=== PATIENT | female | born 1940 | race Caucasian/White ===

== ENCOUNTER 2021-04-20 06:16 | Observation (INO) ==
--- NOTE | 2021-03-22 13:29 | PAT Medication Instructions ---
Medication Instructions Date of Service March 22, 2021 Home Medications Biotin Otc 1 tab PO DAILY albuterol sulfate [Ventolin HFA] 1 puff INHALATION QID PRN aspirin [Aspir-81] 81 mg PO QPM docusate sodium [Stool Softener] 100 mg PO DAILY PRN famotidine 20 mg PO BID losartan 50 mg PO QAM pravastatin 10 mg PO QPM vitamin B complex 1 tab PO DAILY DO NOT take the morning of surgery Biotin Otc 1 tab PO DAILY docusate sodium [Stool Softener] 100 mg PO DAILY PRN famotidine 20 mg PO BID losartan 50 mg PO QAM vitamin B complex 1 tab PO DAILY Take morning of surgery With a small sip of water, OTHERWISE NOTHING TO EAT OR DRINK AFTER MIDNIGHT: albuterol sulfate [Ventolin HFA] 1 puff INHALATION QID PRN (use if needed; please bring rescue inhaler with you to hospital day of surgery if possible) Take evening before surgery albuterol sulfate [Ventolin HFA] 1 puff INHALATION QID PRN (if needed) aspirin [Aspir-81] 81 mg PO QPM (take as normal unless told otherwise by surgeon) docusate sodium [Stool Softener] 100 mg PO DAILY PRN (if needed) famotidine 20 mg PO BID pravastatin 10 mg PO QPM Other Notes If you have any questions please call us at [phone] or [phone] or [phone] or [phone]
--- NOTE | 2021-03-23 12:57 | Anesthesiology Consultation ---
Date of Service March 23, 2021 Assessment & Plan (1) Encounter for pre-operative examination: Chart Review Chart Review: Acceptable Risk for Surgery (pending PCP clearance 04/07/21 and preop Covid testing results ) and Patient seen in Pre Admission Testing Awaiting PCP clearance 04/07/21 Per PAT appt on 03/23/21, pt resides in [facility]. Wears mask, uses good hand hygiene and socially distances. Pt traveled to [facility] two weeks ago to visit family. No known Covid positive contacts or Covid related symptoms. No known Covid infection in the past 90 days. Educated patient to follow up with surgeon's office regarding Covid testing- pt educated that Covid testing usually done 2-3 days prior to surgery. Educated on importance of self quarantining, social distancing and wearing mask in public both for the patient and household contacts. Pt fully vaccinated. Teaching & Discussion Pre-Anesthesia Teaching/Discussion Notes: Instructed NPO after midnight before surgery,except medications with 15 cc of water. Medication instructions provided according to the PAT guidelines. History Surgery Operation Date: 04/20/21 11:00 Proposed Procedures p Right Total Knee Arthroplasty(Right) - Manan Hager DO Height/Weight Height: 5 ft 3 in Weight: 75.8 kg Allergies Allergy/AdvReac Type Severity Reaction Status Date / Time No Known Allergies Allergy Verified 03/14/21 09:40 Medications Home Medications Medication Instructions Recorded Confirmed Last Taken Biotin Otc 1 tab PO DAILY 03/14/21 03/14/21 Unknown albuterol sulfate [Ventolin HFA] 1 puff INHALATION QID PRN 03/14/21 03/14/21 Unknown aspirin [Aspir-81] 81 mg PO QPM 03/14/21 03/14/21 Unknown docusate sodium [Stool Softener] 100 mg PO DAILY PRN 03/14/21 03/14/21 Unknown famotidine 20 mg PO BID 03/14/21 03/14/21 Unknown losartan 50 mg PO QAM 03/14/21 03/14/21 Unknown pravastatin 10 mg PO QPM 03/14/21 03/14/21 Unknown vitamin B complex 1 tab PO DAILY 03/14/21 03/14/21 Unknown Past Medical History Medical History Anxiety Arthritis Asthma HX-NEVER USED INHALER Well controlled and stable Depression HX GERD (gastroesophageal reflux disease) Well controlled and stable Hyperlipidemia Hypertension Temporomandibular joint disorder RIGHT SIDE CLICKS-NO LOCKING Exercise / Class Metabolic Activity II 4-5 Yardwork/Stairs/Walk up hill (one flight of stairs - no chest pain or SOB ) Past Family History Family History Mother Family history of reaction to anesthesia SLOW TO WAKE UP Father Family history of diabetes mellitus Past Surgical History Surgical History Fusion of spine X 2-LOWER BACK History of anesthesia reaction SORE THROAT AFTER BACK SURGERY History of colonoscopy History of esophagogastroduodenoscopy (EGD) Past Anesthesia History No Hx of Anesthesia Complications (with exception to sore throat s/p lumbar surg efrain (first lumbar surgery 1996)- no issues with second lumbar surgery ) and No Family Hx of Anesthesia Complications (with exception to mother - slow to wake - no reintubation or ICU stay ) History of PONV No Hx of Motion Sickness and History of PONV (possibly one episode but otherwise no issues ) Social History Smoking Status: Never smoker Do You Dip or Chew Tobacco: No Hx Alcohol Use: Yes Alcohol type: beer and wine Alcohol Intake Frequency Comment: RARELY Hx Substance Use: No Review of Systems No significant chest pain- gets pains all over body- will be discussing with PCP at clearance appt 04/07/21 Occ snoring - when sleeping on back - no hx of sleep study Hx of blood transfusion after lumbar surgery Patient denies shortness of breath, dyspnea on exertion,, cough, wheezing, palpitations. No hx of seizures, stroke, MA, apnea/snoring. No hx of blood clots. Physical Exam Vital Signs VITALS BP 126/75 P 85 TEMP 98.0 SP02 99% RESP 16 Constitutional no acute distress ENMT Mouth: no TMJ clicking Thyromental Distance: > or= 3.5 Finger Breadths (3.5) Mallampati Class: II Missing molar Neck + limited neck extension (mild ) Respiratory normal respiratory effort; no respiratory distress Auscultation: lungs clear to auscultation bilaterally; no wheezes Cardiovascular Rate/Rhythm: regular rate and regular rhythm Heart Sounds: no murmur Vessels: no carotid bruit Musculoskeletal Spine: no pain with cervical ROM Extremities: extremities normal to inspection Psychiatric Orientation: alert Lab Results Anesthesia Preop Results Results Anesthesia Widget: WBC 5.81 K/uL (4.8-10.8) 03/23/21 Hgb 13.3 g/dL (12.0-16.0) 03/23/21 Hct 38.7 % (37-47) 03/23/21 Plt 249 K/uL (130-400) 03/23/21 Na 140 mmol/L (136-145) 03/23/21 K 4.1 mmol/L (3.5-5.1) 03/23/21 Cl 107 mmol/L (98-107) 03/23/21 CO2 28 mmol/L (21-32) 03/23/21 BUN 13 mg/dl (7-18) 03/23/21 Creat 0.91 mg/dl (0.6-1.2) 03/23/21 Glucose Level 116 mg/dl (70-99) H 03/23/21 PT 10.3 Seconds (9.0-12.0) 03/23/21 PTT 25.4 Seconds (21.0-31.0) 03/23/21 INR 1.0 (0.9-1.1) 03/23/21 HA1c 5.5 % (4.5-5.6) 03/23/21 Urine Color Yellow 03/23/21 Urine Appearance Clear (Clear) 03/23/21 Urine pH 7.5 (4.5-7.5) 03/23/21 Urine Specific [place] 1.018 (1.000-1.030) 03/23/21 Urine Protein Negative (Negative) 03/23/21 Urine Glucose (UA) Negative (Negative) 03/23/21 Urine Ketones Negative (Negative) 03/23/21 Urine Blood Negative (Negative) 03/23/21 Urine Nitrite Negative (Negative) 03/23/21 Urine Bilirubin Negative (Negative) 03/23/21 Urine Urobilinogen Negative (Negative) 03/23/21 Urine Leukocyte Esterase Negative (Negative) 03/23/21 Blood Type O Positive 03/23/21 Antibody Screen NEGATIVE 03/23/21 Testing Electrocardiogram Date: 03/23/21 Findings: + NSR @ (76bpm) Incomplete RBBB. Chest X-Ray Date: 03/23/21 Findings: + NAD The cardiac and mediastinal contours are normal. There is no evidence of focal pulmonary consolidation. There is no evidence of failure. No pleural effusions are visualized.[There is a mild thoracolumbar scoliosis. Postsurgical changes are present within the lumbar spine.
--- NOTE | 2021-03-31 12:19 | History & Physical Report ---
Date of Service March 31, 2021 date of surgery: 04/20/21 Procedure: Right Total Knee Arthroplasty Assessment & Plan (1) Arthritis of right knee: Further care discussed with patient and at this point in time has failed conservative measures and would like to proceed with a Right total knee re placement. Plan on discharge will be home with home health physical therapy. DVT prophalaxis with TEDs, SCDs and will also place on aspirin 81 mg p.o. b.i.d. for a month postop. Patient will have follow up appointment in our office two weeks post op for staple/suture removal and re-evaluation. Patient otherwise has no other questions or concerns. The risks and benefits have been discussed including, but not limited to, risk of infection, nerve injury, stiffness, loss of motion, failure to improve, etc. Reasonable outcomes and options of treatment were discussed. An explanation of appropriate alternatives to the procedure that may be advantageous were discussed and their risks and benefits, as well as the risks and benefits of not proceeding with treatment. I offered to answer any additional inquiries concerning the treatment involved. All the patient's questions were answered. The patient is agreeable, understanding of the treatment plan and alternatives, and wishes to proceed with the treatment plan. History of Present Illness Chief Complaint: Right knee pain Primary Care Provider: NO PCP Christi is a 80 year old female who complains of right knee pain, presents for pre-op evaluation prior to a right total knee replacement by Dr Hager at [facility]. she complains of pain and stiffness in her right knee. Currently the patient states that the symptoms are moderate-severe. The pain is described as aching, sharp and throbbing. The symptoms are aggravated by ascending stairs, daily activities, first steps while awake walking. Prior NSAIDs include ibuprofen and aleve. she has been treated with previous durolane injections in the past without much relief. she had prior right knee scope approximately 4-5 years ago. Allergies Allergy/AdvReac Type Severity Reaction Status Date / Time No Known Allergies Allergy Verified 03/14/21 09:40 Home Medications Medication Instructions Recorded Confirmed Type Biotin Otc 1 tab PO DAILY 03/14/21 03/14/21 History albuterol sulfate [Ventolin HFA] 1 puff INHALATION QID PRN 03/14/21 03/14/21 History aspirin [Aspir-81] 81 mg PO QPM 03/14/21 03/14/21 History docusate sodium [Stool Softener] 100 mg PO DAILY PRN 03/14/21 03/14/21 History famotidine 20 mg PO BID 03/14/21 03/14/21 History losartan 50 mg PO QAM 03/14/21 03/14/21 History pravastatin 10 mg PO QPM 03/14/21 03/14/21 History vitamin B complex 1 tab PO DAILY 03/14/21 03/14/21 History Past Med/Surg History Medical History Anxiety Arthritis Asthma HX-NEVER USED INHALER Well controlled and stable Depression HX GERD (gastroesophageal reflux disease) Well controlled and stable Hyperlipidemia Hypertension Temporomandibular joint disorder RIGHT SIDE CLICKS-NO LOCKING Surgical History Fusion of spine X 2-LOWER BACK History of anesthesia reaction SORE THROAT AFTER BACK SURGERY History of colonoscopy History of esophagogastroduodenoscopy (EGD) Family History Mother Family history of reaction to anesthesia SLOW TO WAKE UP Father Family history of diabetes mellitus Social History Smoking Status: Never smoker Second Hand Exposure: Yes (MOTHER SMOKED); Hx Alcohol Use: Yes Alcohol type: beer and wine Hx Substance Use: No Preferred Language: Cymraes 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: No Beliefs That Will Affect Care: None Current Living Situation: Alone current occupational status: retired Feels Safe at Home: Yes Assistive Devices: Cane and Glasses Review of Systems Review of Systems: All systems reviewed & are unremarkable except as noted in HPI & below Constitutional: no fever, no chills and no sweats Respiratory: no cough and no dyspnea Cardiovascular: no chest pain, no dyspnea and no orthopnea Gastrointestinal: no abdominal pain, no nausea and no vomiting Musculoskeletal: as per Subjective / HPI Physical Exam Physical Exam: HT: 5ft 3in WT: 75.8kg Constitutional: WD/WN, vitals as above no acute distress Respiratory: normal respiratory effort, lungs clear to auscultation no resp iratory distress, no labored breathing and does not use accessory muscles Cardiovascular: RRR, no murmur, no edema Gastrointestinal (Abdomen): normal bowel sounds, soft, nontender, no hepatosplenomegaly Musculoskeletal: Knee: + knee abnormal to inspection (Right Knee- ), + effusion (+1 effusion), + surgical incision (well healed portals), + limited ROM of knee (ROM 0/3/110), + knee ROM with crepitation, + joint line tenderness (medial joint line) and + Jarred's sign positive; no deformity, no skin erythema, no ecchymosis, no valgus laxity, no varus laxity, anterior drawer test negative, Leeann's sign negative and pivot shift test negative Results & Data Results & Data ([facility]) Diagnostic Findings Right Knee X-ray: Right knee series showing advanced degenerative changes to the right knee, narrowing of the medial compartment and patello-femoral joint with patellar spurring noted, findings showing joint space narrowing of the medial compartment and patello-femoral joint, osteophyte formation and subchondral sclerosis noted. overall varus alignment. no acute bony pathology noted.
[~2021-04-20 06:16] MED LIST: ACETAMINOPHEN 500 MG TAB PO SCH; CeleBREX 200 MG CAP PO SCH; FAMOTIDINE 20 MG TAB PO SCH; GABAPENTIN 300 MG CAP PO SCH; LR 500ML BOLUS, THEN 15ML/HR IV SCH; METOCLOPRAMIDE HCL 10 MG TABLET PO SCH; ROPIVACAINE 0.5% HCL/PF 150 MG, BUPIVACAINE 0.75% MPF 20 ML, EPINEPHrine 30MG/30ML (OR ... INSTIL SCH; Scopolamine 1 MG TDSY TD SCH; TRANEXAMIC ACID 1,000 MG **IV Intra-op IV SCH; TRANEXAMIC ACID 1,000 MG **IV Pre-op IV SCH; ceFAZolin 1000MG 1,000 MG/7.5 ML SYR IV SCH; dexAMETHasone 4 MG TAB PO SCH
[2021-04-20] MEDS ORDERED: EPINEPHrine INJ 1 MG/ML AMP ONE (06:33)
[2021-04-20] MEDS ORDERED: BUPIVACAINE 0.5 % 5 MG/1 ML PF 10ML VIAL ONE (06:33)
[2021-04-20] MEDS ORDERED: ROPIVACAINE 0.5% 5 MG/ML 30 ML VIAL ONE (06:33)
--- NOTE | 2021-04-20 07:18 | History & Physical Bridge Note ---
Date of Service April 20, 2021 History & Physical Bridge Note I have examined the patient, reviewed the History & Physical and in the interval since the performance of the History & Physical I have noted the following changes of clinical significance: no changes noted
[2021-04-20] MEDS ORDERED: MIDAZOLAM HCL 1 MG/ML 2ML VIAL ONE (07:48)
[2021-04-20] MEDS ORDERED: LIDOCAINE 2% 2 ML VIAL/AMP(20MG/ML) INFIL ONE (07:48)
[2021-04-20] MEDS ORDERED: PROPOFOL IV EMULSION 10 MG/ML 20 ML VIAL IV ONE ×2 (07:48→10:32)
[2021-04-20] MEDS ORDERED: LABETALOL HCL IV 5 MG/ML 20ML IV PRN (08:12)
[2021-04-20] MEDS ORDERED: ONDANSETRON INJ 2 MG/ML 2 ML VIAL IV PRN ×2 (08:12→12:22)
[2021-04-20] MEDS ORDERED: ePHEDrine sulfate 50 MG/ML AMP IV PRN (08:12)
[2021-04-20] MEDS ORDERED: HYDROmorphone INJ 1 MG/ML SYRINGE IV PRN ×2 (08:12→12:22)
[2021-04-20] MEDS ORDERED: PHENYLEPHRINE 100MCG/ML 5ML SYR IV PRN (08:12)
[2021-04-20] MEDS ORDERED: ATROPINE SULFATE 0.1 MG/ML 10ML SYR IV PRN (08:12)
[2021-04-20] MEDS ORDERED: fentaNYL citrate 100 MCG/2 ML VIAL IV PRN (08:12)
[2021-04-20] MEDS ORDERED: MEPERIDINE HCL 25 MG/ML CARP/VIAL IV PRN (08:12)
[2021-04-20] MEDS ORDERED: ORTHO JOINT ANESTHETIC ONE (08:51)
--- NOTE | 2021-04-20 10:33 | Operative Report ---
Post Operative Report Pre & Post Diagnosis Operation Date: 04/20/21 08:40 Pre-Op Diagnosis: Unilateral primary osteoarthritis right knee. Post-Op Diagnosis: Unilateral primary osteoarthritis right knee. I identified the patient and participated in the time-out.: Yes Procedure Operation Date: 04/20/21 08:40 Actual Procedures p Right Total Knee Arthroplasty(Right) utilizing [employer] total knee arthroplasty persona size femur 10 narrow tibia size F polyeleven medial constrained patella 28 oval- Manan Hager DO Surgeon Manan Hager DO Branch Service Leader Darrel GARDNER Estimated Blood Loss 5 Findings Consistent with Post-Op Diagnosis Patient presents with severe end-stage tricompartmental degenerative joint disease of the right knee nonresponse to conservative management patient is a subchondral sclerosis marginal osteophytes eburnated [id number] subchondral cystic changes moderate to large effusion varus alignment Specimens Bone and cartilage Drains Medium bore Hemovac Anesthesia Type MAC Spinal Regional Complications none Disposition Accompanied Patient To Recovery: No Disposition: Recovery Room Indications Patient presents for right total knee arthroplasty after failed attempted conservative management clinic physical therapy anti-inflammatories relative rest activity modification corticosteroid injection viscosupplementation the above intraoperative findings were noted Description of Procedure After proper prepping and draping of the Right lower extremity anterior midline incision was made over the region of the extensor extensor mechanism after meticulous hemostasis was obtained and maintained in subcutaneous tissues a medial parapatellar incision was made The patella was subluxed lateralward the medial lateral gutter were cleaned from any hypertrophic synovitis and scar tissue of the distal femoral block was placed and the distal femoral osteotomy cut was made subsequently the chamfers anterior and posterior osteotomy cuts were made utilizing the 4-in-1 block the tibia was subsequently subluxed anteriorward medial and ateral meniscal remnants were excised in their entirety remnants of the anterior and posterior cruciate ligaments were excised in their entirety excellent exposure of the proximal tibia was obtained the tibial osteotomy guide was placed on the proximal tibial osteotomy cut was made once again the knee was irrigated with copious amounts of sterile saline solution the patella was subsequently everted lateralward thickened scar tissue around the patella was removed the patella was subsequently cut utilizing a freehand technique and was drilled prepared for final preparation and placement of patella socially flexion-extension gaps were checked and the equal and symmetric trials were placed to the appropriate femoral and tibial trials with poly-spacer being placed for equal flexion and extension gaps and full range of motion including extension to 0 and flexion to 140 the trial components after having been taken to recovery range of motion was subsequently removed meticulous hemostasis was obtained and maintained subsequently a knee block injection of joint cocktail including ropivacaine 0.5% 150 mg. Bupivacaine 0.5% epinephrine 1-200,030 mL's toradol 30 mg dexamethasone 4 mg ketamine 10 mg clonidine 100 m icrograms normal saline solution 30 mg was infiltrated into the soft tissues of the posterior knee medial lateral gutters and periosteal synovium special attention was paid to protect neurovascular structures at all times subsequently trial components having been removed the knee was irrigated with sterile saline solution. debris was removed the proximal tibia was subsequently prepared and was made ready for the placement of the tibial component tibial component was also cemented and tamped into position the femoral component was subsequently placed and cemented in the position the patellar component was subsequently cemented in position because hemostasis once again obtained and maintained wound having been thoroughly irrigated with debridement and debridement lavage was performed as well as a medial parapatellar incision closed with #1 Vicryl in interrupted fashion subcutaneous was closed with #2 Vicryl skin was closed with skin clips. PA-C was necessary for prepping and drapping as well as wound closure of deep fascia Sub cutaneous tissue and skin and was necessary for the case. A sterile compressive dressing was placed patient was taken to recovery in stable condition of report dictated by Madan I attest to the content of the Intraoperative Record and any orders documented therein. Any exceptions are noted below. I attest to the content of the Intraoperative Record and any orders documented therein. Any exceptions are noted below.
--- NOTE | 2021-04-20 11:46 | Anesthesiology Progress Note ---
Date of Service April 20, 2021 Anesthesia Post Procedure Vital Signs Vital Signs: Temp Pulse Pulse Resp BP BP Pulse Ox 04/20/21 11:35 36.3 C L 75 17 142/55 H 96 04/20/21 11:25 85 18 144/63 H 97 04/20/21 11:15 89 22 146/58 H 99 04/20/21 11:09 36.0 C L 94 H 18 149/60 H 98 04/20/21 06:39 36.9 C 78 18 184/79 H 99 Transfer of Care Handoff Completed per policy Notes Mental Status: alert / awake / arousable Patient Amnestic to Procedure: Yes Nausea / Vomiting: adequately controlled Pain: adequately controlled Airway Patency, RR, SpO2: stable & adequate BP & HR: stable & adequate Hydration State: stable & adequate Neuraxial Anesthesia: was administered and sensory block is resolving Anesthetic Complications: no major complications apparent and Pt Satisfied with anesthetic care
--- NOTE | 2021-04-20 11:48 | XRay Report ---
XR knee RT 1 or 2V routine CLINICAL HISTORY: Postoperative evaluation. COMPARISON: None FINDINGS: Alignment of the total right knee arthroplasty is anatomic. No periprosthetic fracture or unexpected radiopaque foreign body. There are surgical drains. IMPRESSION: Expected findings following total right knee arthroplasty. ACT 112: Negative or not required by law. Electronically signed by: Joe Gutierrez M.D. 04/20/2021 11:46 AM
[2021-04-20] MEDS ORDERED: NALOXONE HCL 0.4 MG/1 ML VIAL/CARP IV PRN (12:22)
[2021-04-20] MEDS ORDERED: ALBUTEROL HFA 8 GM INHALER INH PRN (12:22)
[2021-04-20] MEDS ORDERED: MAGNESIUM HYDROXIDE SUSP 30 ML UDC PO PRN (12:22)
[2021-04-20] MEDS ORDERED: diphenhydrAMINE Capsule 25 MG CAP PO PRN (12:22)
[2021-04-20] MEDS ORDERED: METOCLOPRAMIDE HCL INJ 5 MG/ML 2 ML VIAL IV PRN (12:22)
[2021-04-20] MEDS ORDERED: bisacodyL 10 MG SUPP PR PRN (12:22)
[2021-04-20] MEDS: ACETAMINOPHEN 500 MG TAB PO SCH ×2 (14:28→21:33)
[2021-04-20] MEDS: KETOROLAC TROMETHAMINE 15 MG/ML VIAL IV SCH ×2 (14:28→21:34)
[2021-04-20] MEDS ORDERED: Scopolamine CHECK PATCH PLACEMENT SCH (16:00)
[2021-04-20] MEDS: ceFAZolin 2000MG 2,000 MG/15 ML SYR IV SCH (17:08)
[2021-04-20] MEDS: SODIUM CHLORIDE 0.9% 1000ML 1,000 ML IV SCH (17:09)
[2021-04-20] MEDS: PRAVASTATIN SOD 10 MG TAB PO SCH (21:33)
[2021-04-20] MEDS: FAMOTIDINE 20 MG TAB PO SCH (21:33)
[2021-04-20] MEDS: ASPIRIN 81 MG ECTAB PO SCH (21:33)
[2021-04-20] MEDS: SENNA 8.6 MG TAB PO SCH (21:33)
[2021-04-20] MEDS: DOCUSATE SODIUM 100 MG CAP PO SCH (21:34)
[2021-04-21] MEDS: SODIUM CHLORIDE 0.9% 1000ML 1,000 ML IV SCH (00:52)
[2021-04-21] MEDS: ceFAZolin 2000MG 2,000 MG/15 ML SYR IV SCH (02:46)
[2021-04-21] MEDS: KETOROLAC TROMETHAMINE 15 MG/ML VIAL IV SCH ×2 (02:46→08:54)
[2021-04-21] MEDS: ACETAMINOPHEN 500 MG TAB PO SCH ×3 (05:46→21:07)
[2021-04-21 06:16] LABS: Hematocrit (blood only) 30.9 % (37-47); Hemoglobin 10.5 g/dL (12.0-16.0); Mean Corpuscular Hemoglobin 31.7 pg (25-34); Mean Corpuscular Volume 93.4 fL (80-100); Mean Platelet Volume 10.1 fL (7.4-10.4); Platelet Count 221 K/uL (130-400); RDW Standard Deviation 44.7 fL (36.4-46.3); Red Blood Count 3.31 M/uL (4.2-5.4); White Blood Count 14.94 K/uL (4.8-10.8)
[2021-04-21 06:52] LABS: BUN Creatinine Ratio 20.9 (10-20); Calcium 8.3 mg/dl (8.5-10.1); Creatinine Clr Calc Pharmacy 38.8 ml/min; Est GFR (African American) 53.9 ml/min; Est GFR (Non-African American) 46.5 ml/min; Potassium 4.2 mmol/L (3.5-5.1)
[2021-04-21] MEDS: FAMOTIDINE 20 MG TAB PO SCH ×2 (08:52→20:07)
[2021-04-21] MEDS: MULTIVITAMIN TAB PO SCH (08:52)
[2021-04-21] MEDS: VITAMIN B COMPLEX TAB PO SCH (08:52)
[2021-04-21] MEDS: LOSARTAN POTASSIUM 50 MG TAB PO SCH (08:52)
[2021-04-21] MEDS: ASPIRIN 81 MG ECTAB PO SCH ×2 (08:53→20:06)
[2021-04-21] MEDS: DOCUSATE SODIUM 100 MG CAP PO SCH ×2 (08:53→20:07)
--- NOTE | 2021-04-21 09:58 | Orthopedic Progress Note ---
Date of Service April 21, 2021 Assessment & Plan (1) Arthritis of right knee: Postop day 1 that is post right total knee arthroplasty PT/OT protocols. Weightbearing as tolerated. DVT prophylaxis-aspirin p.o. twice daily, SCDs, QUIQUE dumont. Pain management as written. DC planning-patient is planning for home health services upon discharge. We will recheck her later today to see how she has progressed with her PT and if she is independent we will plan for discharge. Admission and Anticipated Discharge Date Admission Date: April 20, 2021 Supervising Physician Co-Signing Physician Notes Patient seen and examined. Agree with KENDRA Choi's note as above. Total knee arthroplasty doing well. Ambulating in the hallway. Plan for discharge home tomorrow. Subjective Postop day 1 Patient sitting up in bed awake and alert. No complaints this morning. Denies shortness of breath, chest pain, lightheadedness. Discussed with the patient that she could possibly be going home today. We discussed that it would depend on how well she performs her physical therapy. Physical Exam Physical Exam: Dressings are clean, dry, and intact. Calves are soft and nontender. Neurovascular intact. Toes are mobile. She has good dorsiflexion and plantarflexion of the right foot. Results & Data ([facility]) Vital Signs (Past 12 Hours) Vital Signs Temp Pulse Resp BP Pulse Ox 04/21/21 07:00 36.5 C 82 16 143/70 H 97 04/21/21 03:13 36.6 C 69 16 125/64 97 04/20/21 21:57 36.8 C 50 L 16 167/77 H 97 Laboratory Results Laboratory Results WBC 14.94 K/uL (4.8-10.8) H 04/21/21 05:28 RBC 3.31 M/uL (4.2-5.4) L 04/21/21 05:28 Hgb 10.5 g/dL (12.0-16.0) L 04/21/21 05:28 Hct 30.9 % (37-47) L 04/21/21 05:28 MCV 93.4 fL (80-100) 04/21/21 05:28 MCH 31.7 pg (25-34) 04/21/21 05:28 MCHC 34.0 g/dL (32-36) 04/21/21 05:28 RDW Std Deviation 44.7 fL (36.4-46.3) 04/21/21 05:28 RDW Coeff of Esme 13.0 % (11.5-14.5) 04/21/21 05:28 Plt Count 221 K/uL (130-400) 04/21/21 05:28 MPV 10.1 fL (7.4-10.4) 04/21/21 05:28 Sodium 138 mmol/L (136-145) 04/21/21 05:28 Potassium 4.2 mmol/L (3.5-5.1) 04/21/21 05:28 Chloride 109 mmol/L (98-107) H 04/21/21 05:28 Carbon Dioxide 24 mmol/L (21-32) 04/21/21 05:28 Anion Gap 5.0 (3-11) 04/21/21 05:28 BUN 24 mg/dl (7-18) H 04/21/21 05:28 Creatinine 1.13 mg/dl (0.6-1.2) 04/21/21 05:28 Est Cr Clr Drug Dosing 38.8 ml/min 04/21/21 05:28 Est GFR ( Amer) 53.9 ml/min 04/21/21 05:28 Est GFR (Non-Af Amer) 46.5 ml/min 04/21/21 05:28 BUN/Creatinine Ratio 20.9 (10-20) H 04/21/21 05:28 Glucose 143 mg/dl (70-99) H 04/21/21 05:28 Calcium 8.3 mg/dl (8.5-10.1) L 04/21/21 05:28 COVID-19 Eval Order Covid19 [facility] 04/20/21 06:40 SARS-CoV-2, RNA, NAAT NEGATIVE (NEGATIVE) 04/20/21 06:40 Impressions Knee X-Ray 04/20/21 11:17 XR knee RT 1 or 2V routine CLINICAL HISTORY: Postoperative evaluation. COMPARISON: None FINDINGS: Alignment of the total right knee arthroplasty is anatomic. No periprosthetic fracture or unexpected radiopaque foreign body. There are surgical drains. IMPRESSION: Expected findings following total right knee arthroplasty. ACT 112: Negative or not required by law. Electronically signed by: Joe Gutierrez M.D. 04/20/2021 11:46 AM
[2021-04-21] MEDS: CeleBREX 200 MG CAP PO SCH ×2 (13:14→21:07)
[2021-04-21] MEDS: oxyCODONE HCL IR 5 MG TAB (IMMEDIATE RELEASE) PO PRN (20:05)
[2021-04-21] MEDS: PRAVASTATIN SOD 10 MG TAB PO SCH (20:06)
[2021-04-21] MEDS: SENNA 8.6 MG TAB PO SCH (20:07)
[2021-04-22] MEDS: ACETAMINOPHEN 500 MG TAB PO SCH (05:18)
[2021-04-22] MEDS: CeleBREX 200 MG CAP PO SCH (08:00)
[2021-04-22] MEDS: ASPIRIN 81 MG ECTAB PO SCH (08:00)
[2021-04-22] MEDS: DOCUSATE SODIUM 100 MG CAP PO SCH (08:01)
[2021-04-22] MEDS: FAMOTIDINE 20 MG TAB PO SCH (08:02)
[2021-04-22] MEDS: LOSARTAN POTASSIUM 50 MG TAB PO SCH (08:02)
[2021-04-22] MEDS: VITAMIN B COMPLEX TAB PO SCH (08:03)
[2021-04-22] MEDS: MULTIVITAMIN TAB PO SCH (08:03)
--- NOTE | 2021-04-22 08:14 | Orthopedic Progress Note ---
Date of Service April 22, 2021 Assessment & Plan (1) Arthritis of right knee: Postop day 2 that is post right total knee arthroplasty PT/OT protocols. Weightbearing as tolerated. DVT prophylaxis-aspirin p.o. twice daily, SCDs, QUIQUE dumont. Pain management as written. DC planning-patient is planning for home health services upon discharge. Plan for discharge to home today after a.m. PT/OT. Admission and Anticipated Discharge Date Admission Date: April 20, 2021 Subjective Postop day 2 Patient sitting up in bed awake and alert. She is eating breakfast. She states she has a little bit of burning pain over the top of her incision but otherwise her knee is feeling good this morning. No other complaints. Denies shortness of breath, chest pain, lightheadedness. She is looking forward to going home today. Physical Exam Physical Exam: Dressing is clean, dry, and intact. Calves are soft nontender. Neurovascular intact. Toes are mobile. Results & Data ([facility]) Vital Signs (Past 12 Hours) Vital Signs Temp Pulse Pulse Resp BP Pulse Ox 04/22/21 07:57 80 106/67 100 04/22/21 07:02 36.8 C 63 16 130/70 99 04/21/21 22:26 36.9 C 71 16 104/62 96
[2021-04-22] MEDS: oxyCODONE HCL IR 5 MG TAB (IMMEDIATE RELEASE) PO PRN (09:07)
--- NOTE | 2021-04-24 19:41 | Discharge Summary ---
Date of Service date of discharge: April 22, 2021 date of admission: 04/20/21 Admission HPI Per Admitting Provider Christi is a 80 year old female who complains of right knee pain, presents for pre-op evaluation prior to a right total knee replacement by Dr Hager at [facility]. she complains of pain and stiffness in her right knee. Currently the patient states that the symptoms are moderate-severe. The pain is described as aching, sharp and throbbing. The symptoms are aggravated by ascending stairs, daily activities, first steps while awake walking. Prior NSAIDs include ibuprofen and aleve. she has been treated with previous durolane injections in the past without much relief. she had prior right knee scope approximately 4-5 years ago. Principal Diagnosis right knee arthritis Discharge Exam Constitutional WD/WN, vitals as above Musculoskeletal Right Knee: NVDI, calf SNT, negative kaila sign. DP palpable, able to wiggle toes/ankle movement without difficulty. dressing clean dry and intact. expected post-operative bruising noted. Discharge Data Allergies Allergy/AdvReac Type Severity Reaction Status Date / Time No Known Allergies Allergy Verified 04/20/21 06:55 Procedures Performed Operation Date: 04/20/21 08:40 Actual Procedures p Right Total Knee Arthroplasty(Right) - Manan Hager, Ordered Studies 04/20/21 05:00 US - OR guided needle placemen Routine Hospital Course (1) Arthritis of right knee: Postop day 2 that is post right total knee arthroplasty PT/OT protocols. Weightbearing as tolerated. DVT prophylaxis-aspirin p.o. twice daily, SCDs, QUIQUE dumont. Pain management as written. DC planning-patient is planning for home health services upon discharge. Plan for discharge to home today after a.m. PT/OT. Total Time Total Time Spent Total Time Spent (In Minutes): 20 Total Time Includes: Examination of the Patient, Discharge Planning and Medication Reconciliation Discharge Plan Discharge Items Patient Disposition: Home - Home Health Services Reason For Visit: Unilateral Primary Osteoarthritis Right Knee Discharge Diagnosis: right total knee replacement Activity: Per Instructions section Weightbearing: Right weightbearing Weightbearing Comment: As tolerated with walker Non-emergency contact: Surgeon Call non-emergency contact if: you have any medication questions, your temperature is above 101, your wound has increased redness, your wound has increased drainage and your wound pain has increased Follow-up/Referrals: Vincent Best DO [Primary Care Provider] - Diet: Regular Addtl Attending Provider Instructions: ACTIVITY RECOMMENDATIONS: SELF CARE INSTRUCTIONS AFTER TOTAL KNEE REPLACEMENT A. You may need to continue a physical therapy program after discharge from the hospital. There are several options available to you. Your doctor will assist you in selecting the best one for you. 1. An out-patient facility 2 to 3 times a week for therapy or home therapy. 2. Continue working on all exercises taught to you in the hospital. Your goals should be to increase bending of your knee to 90 degrees and beyond and to fully straighten your knee. B. You may progress at your own pace from walking with a walker or crutches to a cane; then to no assistive devices. C. Make walking a part of your daily routine. Be up as much as comfortable with rest periods throughout the day. Rest with leg elevation is very important. Use the ice wrap frequently for the first 3-4 weeks. D. There are no restrictions on activities. You may ride in a car, shop, participate in finisher machine and all social activities. E. Wear the long elastic stockings (QUIQUE hose) 20 hours a day for 2 weeks after surgery. They can be removed several times a day for laundering and for a bath. F. You may shower, no tub baths until cleared by your doctor. SPECIAL CARE INSTRUCTIONS: VERY IMPORTANT TO READ AND REVIEW A. There are a few signs you need to watch for after you are home. Call [facility] if you notice any of the followin. Increased severe knee pain. Some pain is expected especially when you exercise. 2. Increased swelling in your leg or knee; pain or swelling of the calf muscle in either lower leg. 3. Any fluid drainage from the incision. 4. Shortness of breath or chest pain. B. Please call [facility] at if you have any concerns or questions about your operation or recovery. The doctor or his nurse will return your call promptly. C. You must take antibiotics before dental work, bladder, bowel or other surgery. Your doctor will provide you with a permanent care to carry describing this precaution. IMPORTANT: * REMEMBER TO TAKE ASPIRIN, 81 MG, TWICE DAILY FOR 4 WEEKS UNLESS OTHERWISE DIRECTED. THIS IS YOUR BLOOD THINNER. * HIGH RISK PATIENTS MAY BE PRESCRIBED A STRONGER BLOOD THINNER. THIS WILL BE PROVIDED AT DISCHARGE. * CALL IF INCREASED PAIN, REDNESS, DRAINAGE OR FEVER GREATER THAT 101. * WEAR QUIQUE HOSE 20 HOURS PER DAY FOR 2 WEEKS. * DERMABOND Prineo- This is a mesh tape dressing that is covered with glue. It should remain in place until the incision is properly healed, usually 10-14 days. This dressing is designed to naturally slough off. You may trim the excess mesh tape as it peels off. Incision may be briefly wet in a shower. Dry immediately by blotting with a clean, dry towel. Do not bath or swim until instructed by your doctor. Do not scratch, rub, or pick at the dressing. Do not apply any topical ointments or lotions until dressing is completely removed and/or instructed by your doctor. There may be a small piece of suture material at one end of your incision. Do not pull or trim this. If it is bothersome or catching on clothing, you may cover it with a band-aid. IF INCISION IS LEAKING THROUGH DRESSING, CALL THE OFFICE . FOLLOW UP VISIT: If appointment is not already scheduled: Please call [facility] to make a follow-up appointment for 2 weeks after your surgery at . Stand-Alone Forms: My [facility], Opioid Pain Management, Smoking Cessation Medications and DC Order Prescriptions: New celecoxib [Celebrex] 200 mg Capsule 200 mg PO BID 30 Days Qty: 60 RF: 0 aspirin 81 mg Tablet,Delayed Release (Dr/Ec) 81 mg PO BID 30 Days Qty: 60 RF: 0 acetaminophen 500 mg Tablet 1,000 mg PO Q8 14 Days Qty: 84 RF: 0 polyethylene glycol 3350 [Miralax] 17 gram powder in packet 17 g PO DAILY PRN (Reason: constipation) Qty: 5 RF: 0 cefadroxil 500 mg capsule 500 mg PO BID Qty: 28 RF: 1 oxycodone 5 mg Tablet 5 mg PO Q4H MDD 6 PRN (Reason: pain) Qty: 30 RF: 0 Continued losartan 50 mg Tablet 50 mg PO QAM RF: 0 famotidine 20 mg Tablet 20 mg PO BID RF: 0 pravastatin 10 mg Tablet 10 mg PO QPM RF: 0 docusate sodium [Stool Softener] 100 mg Capsule 100 mg PO DAILY PRN (Reason: Constipation) RF: 0 vitamin B complex Tablet 1 tab PO DAILY RF: 0 Biotin Otc 1 tab PO DAILY RF: 0 albuterol sulfate [Ventolin HFA] 90 mcg/actuation Hfa Aerosol Inhaler 1 puff INHALATION QID PRN (Reason: Wheezing) RF: 0 Discontinued aspirin [Aspir-81] 81 mg Tablet,Delayed Release (Dr/Ec) 81 mg PO QPM RF: 0 Discharge Orders: Discharge Order (Routine); Ordered 04/22/21 Ordered By: Nacho Mariano/Other Patient Handouts: DVT Post Op Prevention Admission Data Admit Date/Time: 04/20/21 11:18 Attending Provider: Manan Hager Admit Provider: Manan Hager Primary Care Provider: Vincent Best. Other Interventions: Discharge Summary Assessment (RN) Last Done: 04/22/21 11:57
== END 2021-04-22 12:33 | disposition home health service (06) ==
LOC: ASU 06:16 → 3E 06:16